=== PATIENT | female | born 1990 | race Two or more races ===

== ENCOUNTER 2017-07-28 21:33 | Emergency (ER) | payer MEDICAID ==
[~2017-07-28] VITALS: Ht 167.6 cm; Wt 70.2 kg
[2017-07-28 21:35] VITALS: BP 160/67
[2017-07-28] MEDS ORDERED: HYDROmorphone 2 MG/ML, 1ML ONE (23:27)
[2017-07-28] MEDS ORDERED: HYDROmorphone 2 MG/ML, 1ML IM ONE (23:30)
== END 2017-07-29 00:23 | disposition home or self-care (01) ==
LOC: ED 07-29 00:01
DX: S82.62XA Displaced fracture of lateral malleolus of left fibula, initial encounter for closed fracture (principal); S82.52XA Displaced fracture of medial malleolus of left tibia, initial encounter for closed fracture; X50.1XXA Overexertion from prolonged static or awkward postures, initial encounter; Y93.89 Activity, other specified; Y92.89 Other specified places as the place of occurrence of the external cause; Y99.0 Civilian activity done for income or pay
CPT/HCPCS: 29505; 73610; 73630; 96372; 99284; J1170